=== PATIENT | female | born 1965 | race African-American/Black ===

== ENCOUNTER 2017-02-21 08:33 | Emergency (ER) ==
[2017-02-21 08:33] VITALS: BMI 41.1
[2017-02-21 08:39] VITALS: BP 145/88; TEMP 97.5
--- NOTE | 2017-02-21 09:03 | ED.PDOC ---
General ED Provider: Dr. KRYSTEN GUTIERREZ Chief Complaint: Sore Throat Stated Complaint: sore throat Time Seen by Physician: 08:33 (may at bedside ) Mode of Arrival: Walk-In Information Source: Patient Exam Limitations: No limitations [facility] Nursing and Triage Documentation Reviewed and Agree: Yes EENT Complaint Exam - Throat Complaint/Exam Symptoms Are: Still present Timimg: Constant Initial Severity: Moderate Current Severity: Mild Aggravating: Reports: Eating Alleviating: Reports: None Associated Signs and Symptoms: Denies: Fever, Dysphagia, Drooling, Foreign body sensation, Chills, Cough, Wheezing, Hoarseness, Sinus discomfort, Nasal congestion, Difficulty breathing, Lethargy, Irritability, Decreased activity, Vomiting, Diarrhea, Decreased hearing, Ear drainage Related History: Reports: Similar Episode Uvula Midline: Yes Pippa-tonsillar Fluctuence: No Scarlatinaform Rash Present: No Stridor Present: No Sinus Tenderness Present: No Tonsillar Hypertrophy Present: No Tonsillar Exudate Present: No Pippa-tonsillar Swelling Present: No Adenopathy Present: No Splenomegaly Present: No Review of Systems - Review Of Systems Constitutional: Reports: No symptoms Eyes: Reports: No symptoms Ears, Nose, Mouth, Throat: Reports: Throat pain Respiratory: Reports: No symptoms Cardiac: Reports: No symptoms GI: Reports: No symptoms : Reports: No symptoms Musculoskeletal: Reports: No symptoms Skin: Reports: No symptoms Neurological: Reports: No symptoms Endocrine: Reports: No symptoms Hematologic/Lymphatic: Reports: No symptoms All Other Systems: Reviewed and Negative Past Medical History - Past Medical History Previously Healthy: No Endocrine: Reports: DM 2 (on onsulin) Cardiovascular: Reports: None Respiratory: Reports: None Hematological: Reports: None Gastrointestinal: Reports: None Genitourinary: Reports: None, Other (increased voiding with oral hypoglycemics) Neuro/Psych: Reports: CVA (on coumadin 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) Musculoskeletal: Reports: Arthritis, Back Pain Cancer: Reports: None Last Menstrual Period: menopause Other Pertinent Past Medical History: Back pain - Surgical History General Surgical History: Reports: Unknown - Family History Family History: Reports: Unknown - Social History Smoking Status: Current every day smoker, Heavy tobacco smoker Hx Substance Use: No Alcohol Screening: Occasionally Physical Exam - Physical Exam Appearance: Well-appearing, No pain distress, Well-nourished Eyes: LISET, EOMI, Conjunctiva clear ENT: Ears normal, Nose normal, Oropharynx normal Respiratory: Airway patent, Breath sounds clear, Breath sounds equal, Respirations nonlabored Cardiovascular: RRR, Pulses normal, No rub, No murmur GI/: Soft, Nontender, No masses, Bowel sounds normal, No Organomegaly Musculoskeletal: Normal strength, ROM intact, No edema, No calf tenderness Skin: Warm, Dry, Normal color Neurological: Sensation intact, Motor intact, Reflexes intact, Cranial nerves intact, Alert, Oriented Psychiatric: Affect appropriate, Mood appropriate Critical Care Note - Critical Care Note Total Time (mins): 0 Course - Course Vital Signs: Temp Pulse Resp BP Pulse Ox 02/21/17 08:33 97.5 F L 78 20 145/88 H 95 Departure - Departure Time of Disposition: 09:02 Disposition: HOME SELF-CARE Discharge Problem: Throat pain Instructions: Strep Throat (ED), Pharyngitis (ED) Condition: Good Pt referred to PMD for follow-up: No Allergies/Adverse Reactions: Allergies lisinopril Allergy (Severe, Verified 02/21/17 08:40) cough Patient to notify drugstore steroids Adverse Reaction (Uncoded 08/18/16 21:41) Nausea Home Medications: Ambulatory Orders Aspirin [Aspirin Chewable] 81 mg PO DAILY 03/16/13 Hydrocodone/Acetaminophen [Alma 5-325 Tablet] 1 each PO BID 01/30/16 Hydroxyzine HCl 25 mg PO TID #90 09/06/16 Amoxicillin 500 mg PO Q8HR #21 tablet 02/21/17 Disposition Discussed With: Patient
== END 2017-02-21 09:08 | disposition home or self-care (01) ==
LOC: ED 08:33
DX: J02.9 Acute pharyngitis, unspecified (principal); F17.210 Nicotine dependence, cigarettes, uncomplicated
CPT/HCPCS: 99282

== ENCOUNTER 2017-04-15 12:16 | Outpatient (RCR) ==
[2013-03-16 13:59] VITALS: BP 153/98; TEMP 97.2
== END 2017-05-06 ==
LOC: NEWBEG 12:16 → EDSTATUS 12:18
PROVIDERS: ATTEND Psychiatry & Neurology Psychiatry
DX: Z00.8 Encounter for other general examination (principal)

== ENCOUNTER 2017-04-24 09:55 | Outpatient (CLI) ==
[2013-03-16 13:59] VITALS: BP 153/98; TEMP 97.2
[2017-04-24 10:11] LABS: BASOPHILS % (AUTO) 0.8 % (0.0-3.0); EOSINOPHILS # (AUTO) 0.1 K/ul (0.0-0.7); EOSINOPHILS % (AUTO) 2.3 % (0.0-7.0); HEMATOCRIT 44.5 % (37.0-47.0); HEMOGLOBIN 14.6 g/dl (12.0-16.0); IMMATURE GRANULOCYTE % (AUTO) 0.2 % (0.0-5.0); LYMPHOCYTES % (AUTO) 42.4 (10.0-50.0); MEAN CORPUSCULAR HEMOGLOBIN 27.7 pg (27.0-31.0); MEAN CORPUSCULAR HGB CONC 32.8 (31.8-35.4); MEAN CORPUSCULAR VOLUME 84.4 fl (81.0-99.0); MONOCYTES # (AUTO) 0.4 K/uL (0.4-2.0); MONOCYTES % (AUTO) 7.7 (0-10); NEUTROPHILS # (AUTO) 2.2 K/ul (2.0-6.9); NEUTROPHILS % (AUTO) 46.6; PLATELET COUNT 306 10^3/uL (140-440); RED BLOOD COUNT 5.27 10^6/ul (4.20-5.40); WHITE BLOOD COUNT 4.81 K/ul (4.6-10.2)
[2017-04-24 10:50] LABS: ALBUMIN 3.9 g/dL (3.4-5.0); ALBUMIN/GLOBULIN RATIO 1.15; ANION GAP 16.2; BILIRUBIN,TOTAL 0.71 mg/dL (0.00-1.20); BUN/CREATININE RATIO 15.58; CALCIUM 9.7 mg/dL (8.2-10.2); CHOL/HDL RATIO 6.9 (4.5-5.5); CREATININE 0.77 mg/dL (0.60-1.30); POTASSIUM 4.2 mmol/L (3.5-5.10); TOTAL PROTEIN 7.3 g/dL (6.4-8.2)
== END 2017-04-24 09:56 | disposition home or self-care (01) ==
LOC: LAB 09:55
PROVIDERS: ATTEND Nurse Practitioner Family
DX: E78.5 Hyperlipidemia, unspecified (principal); E11.9 Type 2 diabetes mellitus without complications; I10 Essential (primary) hypertension; Z91.19 Patient's noncompliance with other medical treatment and regimen
CPT/HCPCS: 36415; 80053; 80061; 83036; 84443; 85025

== ENCOUNTER 2017-04-26 10:18 | Outpatient (CLI) ==
[2013-03-16 13:59] VITALS: BP 153/98; TEMP 97.2
--- NOTE | 2017-04-26 11:55 | MRI ---
EXAM: MRI brain without IV contrast. DATE: 26 April 2017. HISTORY: Dizziness and giddiness. TECHNIQUE: Sagittal T1W, axial T2W, axial FLAIR, axial T1W, axial DWI, and coronal T2W GRE sequence s of the brain were obtained using 1.2 [place] magnet. No IV contrast. COMPARISON: MRI brain 11/16/2014. FINDINGS: The ventricles, cisterns, and subarachnoid spaces are commensurately enlarged due to invo lutional change. No midline shift, mass effect or loculated extra-axial fluid collection is apparen t. No acute hemorrhage or neoplasm is identified. Small/moderate confluent rim of T2W/FLAIR hyperi ntensity is observed in the white matter abutting each lateral ventricle. Small number of to to 5 m m, T2W/FLAIR bright foci are scattered within the jay radiata, centrum semiovale and subcortical white matter bilaterally. Chronic right caudate head, right putamen, right external capsule, right thalamus, and left external capsule lacunar infarcts are observed. DWI hyperintensities at the ante rior paramidline medulla are likely artifacts. A 2 mm DWI slightly bright focus is seen in the righ t paramidline linda and a similar focus in the right frontal jay radiata are suspicious for acute infarct. The contreras - white matter differentiation is normal. The 7th/8th cranial nerve complexes, c erebellopontine angles, brainstem, and visible cervical spinal cord are normal. There is no cerebel lar tonsillar ectopia. The pituitary gland is slightly small in size. Corpus callosum is normal in size and configuration. Flow voids are present in the major intracranial arteries and in the dural venous sinuses. No aneurysm, AVM or dural venous sinus thrombosis is apparent. No orbit abnormali ty is identified. The mastoid air cells are unremarkable. There is no acute sinusitis. No neck ma ss or lymphadenopathy is detected. No calvarial neoplasm or acute fracture is evident. IMPRESSIONS: 1. Acute, tiny infarcts in the right frontal jay radiata and right paramidline linda. No mass ef fect or significant vasogenic edema. 2. Right thalamic, right basal ganglia, bilateral external capsule old lacunar infarcts. 3. No acute hemorrhage, mass or hydrocephalus. 4. Slightly small pituitary gland. No pituitary lesion. Critical result: Report called to Dr. Lopes at 1147 hrs, 26 April 2017.
[2017-04-26 12:50] VITALS: BMI 38.5
== END 2017-04-26 10:19 | disposition home or self-care (01) ==
LOC: RAD 10:18
PROVIDERS: ATTEND Emergency Medicine
DX: R42 Dizziness and giddiness (principal)

== ENCOUNTER 2017-04-26 12:07 | Inpatient (IN) ==
[2017-04-26 12:50] VITALS: BMI 38.5
--- NOTE | 2017-04-26 14:06 | DI ---
EXAM: Chest two views HISTORY: Cough and COMPARISON: 07/14/2014 TECHNIQUE: Two views of the chest were performed FINDINGS: No airspace consolidation. Small left apical nodularity probably vascular summation paris fact versus less likely nodule. There is no pleural effusion or pneumothorax. The heart is normal in size. The mediastinal contour is normal. There are no acute abnormalities of the bones. IMPRESSION: 1. No acute cardiopulmonary process. 2. Small left apical nodularity probably vascular summation artifact versus less likely nodule. Re commend radiographic follow-up 6 months for reevaluation.
[2017-04-26] MEDS: SODIUM CHLORIDE 1,000 ML IV SCH (14:30)
--- NOTE | 2017-04-26 14:37 | US ---
EXAM: Bilateral carotid artery Doppler History: Dizziness. Comparison: Carotid Doppler 11/16/2014, brain MRI 04/26/2017 Technique: Multiple sonographic images through the bilateral internal carotid arteries were obtaine d. Color duplex Doppler was used to interrogate vascular flow. Findings: The right ICA peak systolic velocity is within normal limits measuring 0.5 meters per second The ri ght ICA/cca PSV ratio is normal at 1.0. The right vertebral artery was not seen. Geiger scale images demonstrate mild plaque buildup within the right internal carotid artery. The left ICA peak systolic velocity is within normal limits measuring 0.6 meters per second. The lef t ICA/cca PSV ratio is normal at 1.2. The left vertebral artery is patent and demonstrates antegrad e flow. Geiger scale images demonstrate mild plaque buildup within the left internal carotid artery Impression: 1. No significant hemodynamic stenosis of the bilateral internal carotid arteries. 2. Nonvisualization of the right vertebral artery.
[2017-04-26] MEDS ORDERED: VASOTEC IV IVP PRN (15:37)
[2017-04-26] MEDS ORDERED: KENALOG 0.1% TP PRN (15:46)
[2017-04-26 15:49] LABS: BILIRUBIN,URINE Negative (NEGATIVE); KETONES,URINE 1+ (NEGATIVE); LEUKOCYTE ESTERASE ,URINE Negative (NEGATIVE); NITRITE,URINE Negative (NEGATIVE); PROTEIN,URINE Negative (NEGATIVE); URINE, BLOOD Negative (NEGATIVE)
[2017-04-26 16:25] LABS: ADD URINE MICROSCOPIC NO
[2017-04-26 19:53] LABS: CREATINE KINASE 49 U/L
[2017-04-26] MEDS ORDERED: LANTUS SUBCUT SCH (21:00)
[2017-04-26] MEDS: NORCO 5-325 PO SCH (21:11)
[2017-04-26] MEDS: LOPRESSOR PO SCH (21:11)
[2017-04-26] MEDS: ANTIVERT PO SCH (21:11)
[2017-04-26] MEDS: KENALOG 0.1% TP SCH (21:12)
[2017-04-27 03:01] LABS: BASOPHILS % (AUTO) 0.5 % (0.0-3.0); EOSINOPHILS # (AUTO) 0.1 K/ul (0.0-0.7); EOSINOPHILS % (AUTO) 2.3 % (0.0-7.0); HEMATOCRIT 41.8 % (37.0-47.0); IMMATURE GRANULOCYTE % (AUTO) 0.2 % (0.0-5.0); LYMPHOCYTES # (AUTO) 2.9 K/uL (0.60-3.4); LYMPHOCYTES % (AUTO) 51.4 (10.0-50.0); MEAN CORPUSCULAR HGB CONC 33.5 (31.8-35.4); MEAN CORPUSCULAR VOLUME 83.6 fl (81.0-99.0); MONOCYTES # (AUTO) 0.5 K/uL (0.4-2.0); NEUTROPHILS # (AUTO) 2.2 K/ul (2.0-6.9); NEUTROPHILS % (AUTO) 37.6; PLATELET COUNT 290 10^3/uL (140-440); WHITE BLOOD COUNT 5.72 K/ul (4.6-10.2)
[2017-04-27 03:20] LABS: ALBUMIN 3.5 g/dL (3.4-5.0); ALBUMIN/GLOBULIN RATIO 1.09; ANION GAP 15.5; BILIRUBIN,TOTAL 0.72 mg/dL (0.00-1.20); BUN/CREATININE RATIO 23.28; CALCIUM 9.1 mg/dL (8.2-10.2); CREATININE 0.73 mg/dL (0.60-1.30); POTASSIUM 3.5 mmol/L (3.5-5.10); TOTAL PROTEIN 6.7 g/dL (6.4-8.2)
[2017-04-27 03:26] LABS: CREATINE KINASE 48 U/L
[2017-04-27] MEDS: ASPIRIN EC PO SCH (08:34)
[2017-04-27] MEDS: ANTIVERT PO SCH ×2 (08:34→20:04)
[2017-04-27] MEDS: LOPRESSOR PO SCH ×2 (08:35→20:05)
[2017-04-27] MEDS: NORCO 5-325 PO SCH ×3 (08:35→20:05)
[2017-04-27] MEDS: SODIUM CHLORIDE 1,000 ML IV SCH (12:54)
[2017-04-27] MEDS: KENALOG 0.1% TP SCH (20:04)
[2017-04-27] MEDS: LANTUS SUBCUT SCH (20:05)
[2017-04-28 05:14] LABS: BASOPHILS % (AUTO) 0.6 % (0.0-3.0); EOSINOPHILS # (AUTO) 0.1 K/ul (0.0-0.7); EOSINOPHILS % (AUTO) 2.6 % (0.0-7.0); HEMATOCRIT 41.2 % (37.0-47.0); HEMOGLOBIN 13.6 g/dl (12.0-16.0); IMMATURE GRANULOCYTE % (AUTO) 0.2 % (0.0-5.0); LYMPHOCYTES # (AUTO) 2.5 K/uL (0.60-3.4); LYMPHOCYTES % (AUTO) 53.8 (10.0-50.0); MEAN CORPUSCULAR HEMOGLOBIN 27.6 pg (27.0-31.0); MEAN CORPUSCULAR VOLUME 83.7 fl (81.0-99.0); MONOCYTES # (AUTO) 0.4 K/uL (0.4-2.0); MONOCYTES % (AUTO) 7.7 (0-10); NEUTROPHILS # (AUTO) 1.7 K/ul (2.0-6.9); NEUTROPHILS % (AUTO) 35.1; PLATELET COUNT 292 10^3/uL (140-440); RED BLOOD COUNT 4.92 10^6/ul (4.20-5.40)
[2017-04-28 05:39] LABS: ALBUMIN 3.3 g/dL (3.4-5.0); ALBUMIN/GLOBULIN RATIO 1.1; ANION GAP 15.6; BILIRUBIN,TOTAL 0.61 mg/dL (0.00-1.20); BUN/CREATININE RATIO 21.87; CALCIUM 9.4 mg/dL (8.2-10.2); CREATININE 0.64 mg/dL (0.60-1.30); POTASSIUM 3.6 mmol/L (3.5-5.10); TOTAL PROTEIN 6.3 g/dL (6.4-8.2)
[2017-04-28] MEDS: ANTIVERT PO SCH ×2 (10:38→20:04)
[2017-04-28] MEDS: LOPRESSOR PO SCH ×2 (10:39→20:04)
[2017-04-28] MEDS: ASPIRIN EC PO SCH (10:39)
[2017-04-28] MEDS: NORCO 5-325 PO SCH ×3 (10:43→20:04)
[2017-04-28] MEDS: SODIUM CHLORIDE 1,000 ML IV SCH ×2 (12:52→12:53)
[2017-04-28] MEDS: LANTUS SUBCUT SCH (20:02)
[2017-04-28] MEDS: KENALOG 0.1% TP SCH (20:03)
[2017-04-29 04:48] LABS: BASOPHILS % (AUTO) 0.6 % (0.0-3.0); EOSINOPHILS # (AUTO) 0.1 K/ul (0.0-0.7); EOSINOPHILS % (AUTO) 2.8 % (0.0-7.0); HEMOGLOBIN 13.2 g/dl (12.0-16.0); IMMATURE GRANULOCYTE % (AUTO) 0.2 % (0.0-5.0); LYMPHOCYTES # (AUTO) 2.5 K/uL (0.60-3.4); LYMPHOCYTES % (AUTO) 54.2 (10.0-50.0); MEAN CORPUSCULAR HEMOGLOBIN 27.5 pg (27.0-31.0); MEAN CORPUSCULAR HGB CONC 32.2 (31.8-35.4); MEAN CORPUSCULAR VOLUME 85.4 fl (81.0-99.0); MONOCYTES # (AUTO) 0.4 K/uL (0.4-2.0); MONOCYTES % (AUTO) 9.4 (0-10); NEUTROPHILS # (AUTO) 1.5 K/ul (2.0-6.9); NEUTROPHILS % (AUTO) 32.8; PLATELET COUNT 311 10^3/uL (140-440); WHITE BLOOD COUNT 4.67 K/ul (4.6-10.2)
[2017-04-29 05:10] LABS: ALBUMIN 3.2 g/dL (3.4-5.0); ALBUMIN/GLOBULIN RATIO 1.07; ANION GAP 14.7; BILIRUBIN,TOTAL 0.36 mg/dL (0.00-1.20); BUN/CREATININE RATIO 19.17; CALCIUM 9.4 mg/dL (8.2-10.2); CREATININE 0.73 mg/dL (0.60-1.30); POTASSIUM 3.7 mmol/L (3.5-5.10); TOTAL PROTEIN 6.2 g/dL (6.4-8.2)
[2017-04-29] MEDS ORDERED: DULCOLAX RC STA (08:34)
[2017-04-29] MEDS: LOPRESSOR PO SCH ×2 (09:02→21:19)
[2017-04-29] MEDS: ANTIVERT PO SCH ×2 (09:02→21:20)
[2017-04-29] MEDS: NORCO 5-325 PO SCH ×3 (09:02→21:20)
[2017-04-29] MEDS: ASPIRIN EC PO SCH (09:02)
[2017-04-29] MEDS ORDERED: LANTUS SUBCUT SCH ×2 (09:03→21:00)
--- NOTE | 2017-04-29 11:27 | ECHO2D ---
Date of Exam: 04/29/17 [facility] Reason for Echo: SOB, HTN M-Mode Normal Adult Results LV Dimensions Normal Adult Results AoV Opening excursions >1.6 >1.6 LVEDD-base- 3.5-5.8 4.0 Ao root dimensions 2.0-3.7 3.3 LVESD-base- 3.1-4.6 L. Atrium dimensions 1.9-3.8 3.9 Post. Wall thickness 0.8-1.1 1.2 IV septum (thickness) 0.7-1.2 1.3 Post. Wall excursion 0.72-1.3 NORMAL Septal motion NORMAL Systolic motion R. Ventricular cavity 1.5-2.0 NORMAL LVEF 60% 64% Paradoxical septal wall motion NORMAL 2-D : 2-D M Mode Echocardiogram was performed using apical four chamber and left parasternal long and short axis views. Mitral, tricuspid and aortic valves appear to be normal. Contractility of the left ventricle seems to be normal, so is the cavity size. Left atrial cavity size and aortic root appear to be normal. There is no pericardial effusion. There is no thrombus noted in the left ventricular or left aortic cavity. No mitral valve prolapse noted. M-MODE: MV: NORMAL AV: NORMAL TV: NORMAL PV: CHAMBER SIZE: NORMAL WALL MOTION: NORMAL PERICARDIUM: NORMAL INTERPRETATION: 1. LEFT VENTRICULAR HYPERTROPHY 2. NORMAL VALVES 3. NORMAL LEFT VENTRICULAR CONTRACTILITY MTDD
[2017-04-29] MEDS: HUMULIN R SUBCUT PRN ×3 (11:31→21:20)
[2017-04-29] MEDS: SODIUM CHLORIDE 1,000 ML IV SCH (14:13)
--- NOTE | 2017-04-29 14:33 | HP ---
DATE OF SERVICE: 04/26/17 CHIEF COMPLAINT: Dizziness. HISTORY OF PRESENT ILLNESS: This is a 51 year old female who has been having dizziness for a couple of days off and on. Blood sugars of the patient had not stable, so she came to the office. Her recent A1C was 12.4 and the blood pressure was 180/110. She says that she in and out of taking the blood pressure. The patient's was with her in the room. At that time, I advised the patient to resume the medication and we did an MRI of the brain, which she did today as an outpatient which showed acute tiny infarct in the frontal jay radiata and right paramidline linda. At that time, the patient was brought back to the office. The patient was still symptomatic with the severe dizziness and that time the patient was admitted to the hospital for the acute stroke. The patient still has the dizziness and when she is walking she is dizzy, woozy, unsteady gait. The room is spinning. REVIEW OF SYSTEMS: CONSTITUTIONAL: Dizziness. Unsteady gait. Elevated blood sugars. Elevated blood pressures. No fever, no chills. HEENT: Normal. Sometimes blurry vision. ENDOCRINE: No weight gain; no weight loss. CVS: No chest pain. No PND, no orthopnea. Shortness of breath with exertion. No PND, no orthopnea. RESPIRATORY: No cough, no congestion. No hemoptysis. GI: No nausea, no vomiting. No abdominal pain. No melena. : No hematuria. No polyuria. MUSCULOSKELETAL: Back pain and neck pain. PSYCHIATRIC: Not anxious. No depression. No suicidal thoughts. No homicidal thoughts. SKIN: Intact, no open lesions. PAST MEDICAL HISTORY: Coronary artery disease Dyslipidemia Hypertension History of TIA in 2015 Osteoarthritis DJD of the spine Diabetes mellitus, uncontrolled Nicotine use PAST SURGICAL HISTORY: Cholecystectomy in the . PERSONAL HISTORY: Does smoke, drinks alcohol socially. and lives with her . FAMILY HISTORY: Significant for the diabetes, heart problems and cancer. HOME MEDICATIONS: Betamethasone cream Lantus 50 units hs Meclizine 12.5 mg twice daily Metoprolol 25 mg twice daily Hydroxyzine 35 mg twice daily Atorvastatin 40 mg at bedtime Hydrocodone/APAP 5/325 mg three times daily Aspirin 81 mg daily ALLERGIES: Allergic to Lisinopril PHYSICAL EXAMINATION: V/S: Blood pressure 158/106, respiratory rate 18, heart rate 89, temperature 97.0. HEENT: Atraumatic, normocephalic. No scleral icterus. Pallor positive. Mucosa dry. NECK: Supple. No JVD, no bruit. No lymphadenopathy. No thyromegaly. HEART: S1, S2 normal. No murmur. No cyanosis or clubbing. No ascites. LUNGS: Decreased and clear. No rales or rhonchi. ABDOMEN: Soft, nontender. Bowel sounds are active. No CVA tenderness. No rigidity or guarding. EXTREMITIES: No cyanosis, clubbing or pedal edema. MUSCULOSKELETAL: Intact. NEUROLOGIC: The patient is awake and alert. SKIN: Intact; no open lesions. LYMPHATIC: No lymph nodes palpable. LABS: Labs on the patient are awaiting. ASSESSMENT: 1. ACUTE INFARCTION 2. UNCONTROLLED HYPERTENSION 3. UNCONTROLLED DIABETES MELLITUS 4. NONCOMPLIANCE 5. HISTORY OF DYSLIPIDEMIA PLAN: 1. Admit the patient to the regular floor. 2. CBC, CMP today and daily. 3. Cardiac enzymes and Troponin. 4. Carotid ultrasound. 5. Accucheck with the coverage. 6. Lantus 50 units. 7. Will follow the patient in daily rounds. Time spent on the patient is more than 70 minutes. HERBIED
--- NOTE | 2017-04-29 14:47 | PN ---
DATE OF SERVICE: 04/27/17 SUBJECTIVE: The patient was admitted with acute stroke with severe dizziness and hypertension, which was not controlled with the blood pressure at 159/101. Vasotec was given. Carotid ultrasound done which showed no significant hemodynamic stenosis. Nonvisualization of the right vertebral artery. No chest pain. The patient is feeling better. No dizziness now. Sugars are still high at 247. We will adjust the Lantus. REVIEW OF SYSTEMS: CONSTITUTIONAL: No fever, no chills. HEENT: Normal. ENDOCRINE: No weight gain, no weight loss. CVS: No angina symptoms. No CHF symptoms. No palpitations. No atypical chest pain for CAD. No shortness of breath. No PND, no orthopnea. RESPIRATORY: No cough, no hemoptysis. GI: No nausea, no vomiting. No abdominal pain. : No hematuria. No polyuria. MUSCULOSKELETAL:. No joint swelling. PSYCHIATRIC: Not anxious. No depression. No suicidal thoughts. No homicidal thoughts. SKIN: Intact. No rash. PHYSICAL EXAMINATION: V/S: Blood pressure 122/85, respiratory rate 20, heart rate 80, temperature 97.7. HEENT: Normocephalic, atraumatic. NECK: Supple. No JVD, no carotid bruit. No lymphadenopathy. LUNGS: Clear to auscultation. No rales or rhonchi. HEART: S1, S2 normal. No S3. No murmur, gallop or regurgitation. ABDOMEN: Soft, nontender. Bowel sounds active. No rigidity. No rebound or guarding. No CVA tenderness. EXTREMITIES: No clubbing, cyanosis or pedal edema. MUSCULOSKELETAL: No joint swelling. NEUROLOGIC: Awake, alert, oriented times three. No focal deficit. LYMPHATIC: No lymph nodes palpable. SKIN: Intact. LABS: Sodium 134, potassium 3.5, chloride 99, bicarb 23, BUN 17, creatinine 0.73. White count 5.72, hemoglobin 14, hematocrit 41.8, platelet count is 290. ASSESSMENT: 1. ACUTE ISCHEMIC STROKE 2. HYPERTENSION UNCONTROLLED 3. DIABETES UNCONTROLLED WITH RECENT A1C OF 12.6 4. DYSLIPIDEMIA 5. OBESITY 6. OSTEOARTHRITIS 7. DJD OF THE SPINE 8. NONCOMPLIANCE WITH MEDICATIONS AND MEDICAL TREATMENT PLAN: 1. Will increase the Lantus to 60 units. 2. Accucheck with coverage. 3. I & O's. 4. Out of bed to chair. 5. Activity as tolerated. 6. No DVT prophylaxis as the patient is active. TIME SPENT: More than 30 minutes MTDD
--- NOTE | 2017-04-29 14:59 | PN ---
DATE OF SERVICE: 04/28/17 SUBJECTIVE: The patient was admitted with acute stroke. The patient is clinically stable. The dizziness is better. Sugars are improved ever since we increased the Lantus to 60 units hs. Blood pressure is stable at 131/87. REVIEW OF SYSTEMS: CONSTITUTIONAL: No fever, no chills. HEENT: Normal. ENDOCRINE: No weight gain, no weight loss. CVS: No angina symptoms. No CHF symptoms. No palpitations. No atypical chest pain for CAD. No shortness of breath. No PND, no orthopnea. RESPIRATORY: No cough, no hemoptysis. GI: No nausea, no vomiting. No abdominal pain. : No hematuria. No polyuria. MUSCULOSKELETAL:. No joint swelling. PSYCHIATRIC: Not anxious. No depression. No suicidal thoughts. No homicidal thoughts. SKIN: Intact. No rash. PHYSICAL EXAMINATION: V/S: Blood pressure 131/87, respiratory rate 18, heart rate 64, temperature 97.8. GENERAL: The patient is lying in the bed in no distress. HEENT: Normocephalic, atraumatic. Mucosa dry. NECK: Supple. No JVD, no carotid bruit. No lymphadenopathy. LUNGS: Decreased and clear. No rales or rhonchi. HEART: S1, S2 normal. No S3. No murmur, gallop or regurgitation. ABDOMEN: Soft, nontender. Bowel sounds active. No rigidity. No rebound or guarding. No CVA tenderness. EXTREMITIES: No clubbing, cyanosis or pedal edema. MUSCULOSKELETAL: No joint swelling. NEUROLOGIC: Awake, alert, oriented times three. No focal deficit. LYMPHATIC: No lymph nodes palpable. SKIN: Intact. LABS: Sodium 138, potassium 3.6, chloride 104, bicarb 22, BUN 14, creatinine 0.64, glucose 175. White count is 4.70, hemoglobin 13.6, hematocrit 41.2, platelet count 292. ASSESSMENT: 1. ACUTE CEREBRAL VASCULAR ACCIDENT, ACUTE TINY INFARCTS IN THE RIGHT FRONTAL WRIGHT RADIATA AND RIGHT PARAMIDLINE CRISTINA. RIGHT THALAMIC, RIGHT BASAL GANGLIA. CHRONIC LACUNAR INFARCTS. 2. CAROTID ULTRASOUND IS NORMAL. 3. RECENT A1C IS 12.6 4. HYPERTENSION UNCONTROLLED 5. OBESITY 6. DYSLIPIDEMIA 7. OSTEOARTHRITIS 8. DJD OF THE SPINE 9. ANXIETY 10. CHOLECYSTECTOMY PLAN: 1. Will go ahead and get an echocardiogram in view of her hypertension and the stroke. Carotid ultrasound is negative. 2. Lifestyle modifications was discussed. 3. Hypoglycemia is discussed. TIME SPENT: More than 30 minutes MTDD
--- NOTE | 2017-04-29 15:09 | PN ---
DATE OF SERVICE: 04/29/17 SUBJECTIVE: The patient is going for the echocardiogram now. Sugars are still more than 243-300 again. The patient does get the outside food from the . I tried to explain clearly that is not good idea and that high risk of strokes within one week of acute stroke. Verbalized understanding. REVIEW OF SYSTEMS: CONSTITUTIONAL: No fever, no chills. HEENT: Normal. ENDOCRINE: No weight gain, no weight loss. CVS: No angina symptoms. No CHF symptoms. No palpitations. No atypical chest pain for CAD. No shortness of breath. No PND, no orthopnea. RESPIRATORY: No cough, no hemoptysis. GI: No nausea, no vomiting. No abdominal pain. : No hematuria. No polyuria. MUSCULOSKELETAL:. No joint swelling. PSYCHIATRIC: Not anxious. No depression. No suicidal thoughts. No homicidal thoughts. SKIN: Intact. No rash. PHYSICAL EXAMINATION: V/S: Blood pressure 152/96, respiratory rate 20, heart rate 82, temperature 97.9. HEENT: Normocephalic, atraumatic. Mucosa dry. NECK: Supple. No JVD, no carotid bruit. No lymphadenopathy. LUNGS: Decreased and clear. No rales or rhonchi. HEART: S1, S2 normal. No S3. No murmur, gallop or regurgitation. ABDOMEN: Soft, nontender. Bowel sounds active. No rigidity. No rebound or guarding. No CVA tenderness. EXTREMITIES: No clubbing, cyanosis or pedal edema. MUSCULOSKELETAL: No joint swelling. NEUROLOGIC: Awake, alert, oriented times three. No focal deficit. LYMPHATIC: No lymph nodes palpable. SKIN: Intact. Sugars are really elevated. The patient is having an echocardiogram today. LABS: Sodium 141, potassium 3.7, chloride 104, bicarb 26, BUN 14, creatinine 0.73, white count 4.67, hemoglobin 13.2, hematocrit 41.0, platelet count 311. ASSESSMENT: 1. ACUTE STROKE, ISCHEMIC 2. LABILE HYPERTENSION 3. LABILE DIABETES WITH AN A1C OF 12.6 4. NONCOMPLIANT 5. OBESITY 6. DYSLIPIDEMIA PLAN: 1. Increase the Lantus to 65 units hs. 2. Follow up on the echocardiogram report. 3. Lifestyle modification and weight loss been discussed. TIME SPENT: More than 30 minutes MTDD
[2017-04-29] MEDS: KENALOG 0.1% TP SCH (21:19)
[2017-04-30 05:03] LABS: BASOPHILS % (AUTO) 0.8 % (0.0-3.0); EOSINOPHILS # (AUTO) 0.2 K/ul (0.0-0.7); EOSINOPHILS % (AUTO) 2.9 % (0.0-7.0); HEMATOCRIT 40.7 % (37.0-47.0); HEMOGLOBIN 13.4 g/dl (12.0-16.0); LYMPHOCYTES # (AUTO) 2.9 K/uL (0.60-3.4); LYMPHOCYTES % (AUTO) 57.1 (10.0-50.0); MEAN CORPUSCULAR HGB CONC 32.9 (31.8-35.4); MONOCYTES # (AUTO) 0.5 K/uL (0.4-2.0); NEUTROPHILS # (AUTO) 1.5 K/ul (2.0-6.9); NEUTROPHILS % (AUTO) 30.2; PLATELET COUNT 295 10^3/uL (140-440); RED BLOOD COUNT 4.79 10^6/ul (4.20-5.40)
[2017-04-30 05:35] LABS: ALBUMIN 3.2 g/dL (3.4-5.0); ALBUMIN/GLOBULIN RATIO 1.03; ANION GAP 12.9; BILIRUBIN,TOTAL 0.44 mg/dL (0.00-1.20); BUN/CREATININE RATIO 19.11; CALCIUM 9.7 mg/dL (8.2-10.2); CREATININE 0.68 mg/dL (0.60-1.30); POTASSIUM 3.9 mmol/L (3.5-5.10); TOTAL PROTEIN 6.3 g/dL (6.4-8.2)
[2017-04-30] MEDS: ANTIVERT PO SCH (08:59)
[2017-04-30] MEDS: NORCO 5-325 PO SCH (08:59)
[2017-04-30] MEDS: LOPRESSOR PO SCH (08:59)
[2017-04-30] MEDS: ASPIRIN EC PO SCH (08:59)
[2017-04-30 10:15] VITALS: BP 132/90; TEMP 97.4
[2017-04-30] MEDS: HUMULIN R SUBCUT PRN (11:50)
--- NOTE | 2017-05-01 14:14 | DS ---
DATE OF SERVICE: 04/30/17 FINAL DIAGNOSIS: 1. Acute right frontal jay radiata and right paramidline linda infarct 2. History of right thalamic basal ganglia lacunar infarcts. 3. Diabetes, labile 4. Hypertension, uncontrolled 5. Obesity 6. Non-compliance with medication 7. Osteoarthritis 8. DJD spine 9. Previous history of TIA 10.Anxiety 11.Cholecystectomy DISCHARGE INSTRUCTIONS: Discharge the patient home. Life style modification, weight loss. Hyperglycemia been discussed with the patient in detail and verbalized understanding. MEDICATIONS AT DISCHARGE: Aspirin 81mg PO daily Atorvastatin 40mg at bedtime Hydrocodone one tablet PO three times a day Lantus 65 units at bedtime Meclizine 12.5mg twice a day Metoprolol 25mg PO twice a day NEW PRESCRIPTIONS: Lantus is increased to 65 unit SUBCUT at bedtime Amlodipine 5mg PO daily DIET INSTRUCTIONS: Diet control, more protein less carbohydrate diet been discussed with the patient and understands verbally. ACTIVITY: As tolerated. SMOKING: Counseling for smoking done. DISEASE SPECIFIC EDUCATION: Increased risk for stroke with uncontrolled diabetes and hypertension been discussed and verbalized understanding. She promised that she is going to be more active and try to control her diabetes more better. The patient's was in the room. HOSPITAL COURSE: The patient was initially seen at the [facility] for the dizziness and the elevated blood pressure. We did a MRI of the brain as outpatient and at that time it showed the acute frontal paramidline stroke. At that time the patient was admitted to the hospital. Blood pressure was 159/101. Vasotec was given. Accu-checks were covered and sugars were controlled with the Lantus and the AC and HS sugars. Carotid ultrasounds done which did show minimal plaque did not show any. Meanwhile the Lantus was increased to the 50 units and 60 units and still sugars are more than 250 finally we increased the Lantus to 65 units and keep telling the patient about diet control, weight loss and compliance with the medication and she verbalized understanding. During the hospital stay the blood pressure been finally brought under control. Today morning being 132/86. She says that she promises to take the medication. The patient's has a problem with the addiction of the cocaine and we strictly reminded her not to do any substance abuse and she verbalized understanding. Dizziness was improved and she was up and about walking. We did get the echocardiogram for the evaluation and did showed the left ventricle hypertrophy with the normal ejection fraction. As the patient was doing fine and did not have any complication the patient is being discharged home today. TIME SPENT: More than 55-60 minutes today. CHRISTOPHER
== END 2017-04-30 12:34 | disposition home or self-care (01) | DRG 66 ==
LOC: MEDSURG B 12:07
PROVIDERS: ADMIT Emergency Medicine; ATTEND Emergency Medicine
DX: I63.9 Cerebral infarction, unspecified (principal); R42 Dizziness and giddiness; I51.7 Cardiomegaly; E11.65 Type 2 diabetes mellitus with hyperglycemia; I10 Essential (primary) hypertension; Z86.73 Personal history of transient ischemic attack (TIA), and cerebral infarction without residual deficits; Z91.14 Patient's other noncompliance with medication regimen; E78.5 Hyperlipidemia, unspecified; E66.9 Obesity, unspecified; M19.90 Unspecified osteoarthritis, unspecified site; M47.9 Spondylosis, unspecified; F41.9 Anxiety disorder, unspecified; F17.210 Nicotine dependence, cigarettes, uncomplicated; Z79.4 Long term (current) use of insulin; Z79.899 Other long term (current) drug therapy
CPT/HCPCS: 36415; 80053; 81001; 82550; 82962; 84484; 85025; 93005; 93010; 97802

== ENCOUNTER 2017-05-08 02:57 | Emergency (ER) ==
[2017-05-08 03:00] VITALS: BP 171/89; TEMP 98.2; BMI 40.6
[2017-05-08] MEDS ORDERED: TORADOL IM STA (03:08)
[2017-05-08] MEDS ORDERED: ZOFRAN 4 MG/2 ML IM STA (03:09)
[2017-05-08] MEDS ORDERED: MORPHINE 4 MG/ML SYRINGE IM STA (03:09)
--- NOTE | 2017-05-08 03:13 | ED.PDOC ---
General ED Provider: Dr. JOSEP STANTON-ER Chief Complaint: Hip Pain/Injury Stated Complaint: my hip hurts Time Seen by Physician: 03:11 Mode of Arrival: Walk-In Information Source: Patient, Family Exam Limitations: No limitations [facility] and Triage Documentation Reviewed and Agree: Yes Musculoskeletal Complaint Exam - Hip/Pelvis Complaint/Exam Location of Pain: Reports: Left, Hip Mechanism of Injury: Reports: No known trauma Onset/Duration: 24hrs Symptoms Are: Still present Initial Severity: Mild Current Severity: Moderate Location: Reports: Discrete Character: Reports: Dull, Aching, Throbbing Aggravating: Reports: Movement Alleviating: Reports: None Associated Signs and Symptoms: Denies: Swelling, Redness, Bruising, Fever, Weakness, Dizziness, Syncope, Abdominal pain, Knee pain Able to Bear Weight: No Septic Arthritis Risk Factors: Reports: None Related Surgical History: Reports: None Tenderness: Present: Left Range of Motion Limited In: Present: Flexion, Extension, Abduction, Adduction NV Bundle Intact Distal to Injury: Yes Differential Diagnoses: Bursitis, Sciatica Review of Systems - Review Of Systems Constitutional: Reports: No symptoms Eyes: Reports: No symptoms Ears, Nose, Mouth, Throat: Reports: No symptoms Respiratory: Reports: No symptoms Cardiac: Reports: No symptoms GI: Reports: No symptoms : Reports: No symptoms Musculoskeletal: Reports: Joint pain Skin: Reports: No symptoms Neurological: Reports: No symptoms Endocrine: Reports: No symptoms Hematologic/Lymphatic: Reports: No symptoms All Other Systems: Reviewed and Negative Past Medical History - Past Medical History Previously Healthy: No Endocrine: Reports: DM 2 (on onsulin) Cardiovascular: Reports: None Respiratory: Reports: None Hematological: Reports: None Gastrointestinal: Reports: None Genitourinary: Reports: None, Other (increased voiding with oral hypoglycemics) Neuro/Psych: Reports: CVA (on coumadin 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) Musculoskeletal: Reports: Arthritis, Back Pain Cancer: Reports: None Last Menstrual Period: several years Other Pertinent Past Medical History: Back pain - Surgical History General Surgical History: Reports: Unknown - Family History Family History: Reports: Unknown - Social History Smoking Status: Current every day smoker Hx Substance Use: No Alcohol Screening: Occasionally - Immunizations Tetanus Shot up to Date: Yes Physical Exam - Physical Exam Appearance: Well-appearing, No pain distress, Well-nourished Pain Distress: Moderate Eyes: LISET, EOMI, Conjunctiva clear ENT: Ears normal, Nose normal, Oropharynx normal Neck: Supple Respiratory: Airway patent, Breath sounds clear, Breath sounds equal, Respirations nonlabored Cardiovascular: RRR GI/: Soft, Nontender, No masses, Bowel sounds normal, No Organomegaly Musculoskeletal: Normal strength, ROM intact, No edema, No calf tenderness Skin: Warm, Dry, Normal color Neurological: Sensation intact, Motor intact, Reflexes intact, Cranial nerves intact, Alert, Oriented Psychiatric: Affect appropriate, Mood appropriate Interpretation - Radiology Interpretation Radiology Interpretation By: Radiologist Radiology Results: Positive Exam Interpreted: CT Scan Re-Evaluation - Re-Evaluation Time of Re-Evaluation: 04:15 Status: Improved Vital Signs Stable: Yes Pain Level: 2 Appearance: NAD Lungs: Clear Skin: Warm and Dry Neuro: Alert and Oriented X3 CV: RRR Critical Care Note - Critical Care Note Total Time (mins): 0 Course - Course Orders, Labs, Meds: Orders Category Date Time Status Ketorolac Tromethamine [Toradol] MEDS 05/08/17 03:08 Discontinued 60 mg IM ONCE STA Morphine Sulfate [Morphine 4 mg/ml Syringe] MEDS 05/08/17 03:09 Discontinued 4 mg IM ONCE STA Ondansetron HCl/Pf [Zofran 4 mg/2 ml] MEDS 05/08/17 03:09 Discontinued 4 mg IM ONCE STA CT LUMBAR SPINE W/O CONTRAST Stat RADS 05/08/17 03:[address] PELVIS W/O CONTRAST Stat RADS 05/08/17 03:09 Completed Medications Discontinued Medications Generic Name Dose Route Start Last Admin Trade Name Rashidq PRN Reason Stop Dose Admin Ketorolac Tromethamine 60 mg 05/08/17 03:08 05/08/17 03:15 Toradol IM 05/08/17 03:09 60 mg ONCE STA Administration Morphine Sulfate 4 mg 05/08/17 03:09 05/08/17 03:15 Morphine 4 Mg/Ml Syringe IM 05/08/17 03:10 4 mg ONCE STA Administration Ondansetron HCl 4 mg 05/08/17 03:09 05/08/17 03:15 Zofran 4 Mg/2 Ml IM 05/08/17 03:10 4 mg ONCE STA Administration Vital Signs: Temp Pulse Resp BP Pulse Ox 08/02/17 02:57 98.2 F 90 18 171/89 H 95 Departure - Departure Time of Disposition: 04:15 Disposition: HOME SELF-CARE Discharge Problem: Sciatica Qualifiers: Laterality: left Qualifier Code: (M54.32) Sciatica, left side Instructions: Sciatica (ED), Lumbar Radiculopathy (ED) Condition: Good Pt referred to PMD for follow-up: Yes Additional Instructions: norco 7.5mg q 4hrs prn pain #15--f/u wtih pain management or pcp Allergies/Adverse Reactions: Allergies lisinopril Allergy (Severe, Verified 05/08/17 03:00) cough Patient to notify drugstore steroids Adverse Reaction (Uncoded 05/08/17 03:00) Nausea Home Medications: Ambulatory Orders Aspirin [Aspirin Chewable] 81 mg PO DAILY 03/16/13 Hydrocodone/Acetaminophen [[place] 5-325 Tablet] 1 each PO TID 01/30/16 Blood-Glucose Control, Normal [Onetouch Ultra Control Soln] 1 each MC TID #1 each 04/25/17 Lancets [Onetouch Lancets] 1 each MC TID #100 each 04/25/17 Amlodipine Besylate [Norvasc] 5 mg PO DAILY #30 tablet 04/30/17 Insulin Glargine,Hum.rec.anlog [Lantus] 65 unit SUBCUT BEDTIME #1 ml 04/30/17 Disposition Discussed With: Patient, Family
--- NOTE | 2017-05-08 03:50 | CT ---
EXAM: CT lumbar spine without intravenous contrast 05/08/2017. Sagittal and coronal reformatted im ages obtained HISTORY: Back pain COMPARISON: 07/28/2015 FINDINGS: A normal lumbar lordosis is maintained. Vertebral bodies appear intact without evidence of fracture. The facet joints align normally. Multilevel chronic degenerative disc disease. Multilevel posterior disc bulge flattening the thecal sac. Severe degenerative disc disease at L4-L5. There is loss of disc height with vacuum disc formation. Posterior disc bulge/osteophyte complex in combination with facet arthropathy causes triangulation of the spinal canal. Moderate bilateral neural foraminal stenosis at L4-L5. IMPRESSION: 1. No acute osseous abnormality of the lumbar spine. 2. Severe degenerative disc disease at L4-L5. 3. Follow-up non-emergent MRI could be obtained for further evaluation if clinically indicated.
--- NOTE | 2017-05-08 03:56 | CT ---
EXAM: CT pelvis without intravenous contrast 05/08/2017. Sagittal and coronal reformatted images o btained HISTORY: Left hip pain COMPARISON: 04/15/2015, 05/08/2017. FINDINGS: The soft tissue structures within the pelvis show no acute abnormality. Chronic degenerat nella disc disease of the lower lumbar spine. Symmetric mild bilateral sacroiliac degenerative change. The sacrum appears intact. The bony pelvi s appears intact without fracture or dislocation. The hips align normally. No acute osseous abnormality of the right or left hip. Minimal osteoarthritic degenerative change. IMPRESSION: 1. Chronic degenerative disc disease of the lower lumbar spine. 2. Mild symmetric degenerative change of the sacroiliac joints. 3. Minimal degenerative change of the right and left hip. 4. No acute osseous or soft tissue abnormality identified within the pelvis.
== END 2017-05-08 04:23 | disposition home or self-care (01) ==
LOC: ED 02:57
DX: M54.32 Sciatica, left side (principal); F17.210 Nicotine dependence, cigarettes, uncomplicated
CPT/HCPCS: 96375; 99283

== ENCOUNTER 2017-07-28 16:35 | Emergency (ER) ==
[2017-07-28 16:42] VITALS: BP 168/90; TEMP 98.4; BMI 40.2
--- NOTE | 2017-07-28 17:11 | ED.PDOC ---
General ED Provider: Dr. JONE HENDRICKS Chief Complaint: Dizziness Stated Complaint: More forgetful x 3 days. Also having mild vertigo x 3 days. MRI ordered by PCP revealed "ministrokes." Given meclizine Rx for dizziness. No other symtoms. Time Seen by Physician: 17:04 Mode of Arrival: Walk-In Information Source: Patient Exam Limitations: No limitations [facility] and Triage Documentation Reviewed and Agree: Yes Neurological Complaint Exam - Neurological Deficit Complaint/Exam Patient Complains of: Reports: Other (forgetfullness) Symptom Onset Unknown: No Onset: Gradual Symptoms Are: Still present Timing: Constant Initial Severity: Moderate Current Severity: Moderate Location: Denies: Generalized, Facial, RUE, LUE, RLE, LLE Character: Denies: Numbness, Tingling, Paresthesia, Motor weakness, Paralysis, Sensory loss, Impaired speech Aggravating: Reports: None Alleviating: Reports: None Associated Signs and Symptoms: Reports: Headache (mild headache behind left eye , unaffected by light or eye movements) CVA Risk Factors: Reports: Diabetes, Hypertension, Smoking SDH Risk Factors: Reports: None Related Surgical History: Reports: None Carotid Bruit Present: No Meningeal Signs Positive: No Focal Weakness: Present: None Focal Sensory Loss: Present: None Gait: Normal Nystagmus Present: Yes (with rapid head rotation only) Gag Reflex Present: Yes [id number]: Normal Findings Romberg Test Positive: No Heel to Toe Normal: Yes Signs of Trauma: Yes IV t-PA Prescribed: No Differential Diagnoses: CVA, Other (other illness exacerbating underlying old CVA symptoms) Review of Systems - Review Of Systems Constitutional: Reports: No symptoms Eyes: Reports: No symptoms Ears, Nose, Mouth, Throat: Reports: No symptoms Respiratory: Reports: No symptoms Cardiac: Reports: No symptoms GI: Reports: No symptoms : Reports: No symptoms Musculoskeletal: Reports: No symptoms Skin: Reports: No symptoms Neurological: Reports: Headache, Other (forgetfulness) Endocrine: Reports: No symptoms Hematologic/Lymphatic: Reports: No symptoms All Other Systems: Reviewed and Negative Past Medical History - Past Medical History Previously Healthy: No Endocrine: Reports: DM 2 (insulin-requiring) Cardiovascular: Reports: None Respiratory: Reports: None Hematological: Reports: None Gastrointestinal: Reports: None Genitourinary: Reports: None, Other (increased voiding with oral hypoglycemics) Neuro/Psych: Reports: CVA (on coumadin 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) Musculoskeletal: Reports: Arthritis, Back Pain Cancer: Reports: None Last Menstrual Period: N/A Other Pertinent Past Medical History: Back pain - Surgical History General Surgical History: Reports: Hysterectomy - Family History Family History: Reports: Unknown - Social History Smoking Status: Current every day smoker Hx Substance Use: No Alcohol Screening: Occasionally Lives: With family - Immunizations Tetanus Shot up to Date: No Influenza Vaccine within 12 Months: No Pneumococcal Vaccine up to Date: No Physical Exam - Physical Exam Appearance: Well-appearing, No pain distress, Well-nourished, Obese (mild obesity) Ill-appearing: None Pain Distress: None Eyes: LISET, EOMI, Conjunctiva clear ENT: Ears normal, Nose normal, Oropharynx normal Neck: Supple Respiratory: Airway patent, Breath sounds clear, Breath sounds equal, Respirations nonlabored Cardiovascular: RRR, Pulses normal, No rub, No murmur GI/: Soft, Nontender, No masses, Bowel sounds normal, No Organomegaly Musculoskeletal: Normal strength, ROM intact, No edema, No calf tenderness Skin: Warm, Dry, Normal color Neurological: Sensation intact, Motor intact, Reflexes intact, Cranial nerves intact, Alert, Oriented (oriented to person & place. Does not know day of week or date or season) Psychiatric: Affect appropriate, Mood appropriate Critical Care Note - Critical Care Note Total Time (mins): 0 Course - Course Hematology/Chemistry: 07/28/17 17:25 07/28/17 17:25 Orders, Labs, Meds: Lab Review 07/28/17 07/28/17 07/28/17 17:25 17:25 17:25 WBC 6.10 RBC 5.55 H Hgb 15.4 Hct 46.3 MCV 83.4 MCH 27.7 MCHC 33.3 RDW Coeff of [place] 14.2 Plt Count 366 Immature Gran % (Auto) 0.2 Neut % (Auto) 39.4 Lymph % (Auto) 49.8 [place] % (Auto) 7.4 Eos % (Auto) 2.5 Baso % (Auto) 0.7 Immature Gran # (Auto) 0.0 Neut # 2.4 Lymph # 3.0 [place] # 0.5 Eos # 0.2 Baso # 0.0 Sodium 136 Potassium 4.2 Chloride 101 Carbon Dioxide 25 Anion Gap 14.2 BUN 13 Creatinine 0.68 Estimated GFR (MDRD) 110.00 BUN/Creatinine Ratio 19.11 Glucose 170 H Calcium 10.5 H Total Bilirubin 1.05 AST 17 ALT 22 Alkaline Phosphatase 77 Total Creatine Kinase 45 Troponin I 0.0100 Total Protein 7.4 Albumin 3.7 Globulin 3.7 Albumin/Globulin Ratio 1.00 Urine Color Yellow Urine Clarity Cloudy Urine pH 6.0 Ur Specific [place] 1.010 Urine Protein Negative Urine Glucose (UA) Negative Urine Ketones Negative Urine Blood 1+ Urine Nitrite Negative Urine Bilirubin Negative Urine Urobilinogen 1.0 Ur Leukocyte Esterase Trace Urine Microscopic RBC 2-5 Urine Microscopic WBC 2-5 Ur Squamous Epith Cells 10-20 Amorphous Sediment 2+ Urine Bacteria 2+ Orders Category Date Time Status EKG-(ED ONLY) Stat CARDIO 07/28/17 17:17 Completed CBC W/ AUTO DIFF Stat LAB 07/28/17 17:25 Completed CK [CREATINE KINASE] Stat LAB 07/28/17 17:25 Completed COMPREHENSIVE METABOLIC PANEL Stat LAB 07/28/17 17:25 Completed TROPONIN I Stat LAB 07/28/17 17:25 Completed URINALYSIS C & S IF INDICATED Stat LAB 07/28/17 17:25 Completed URINE CULTURE Stat LAB 07/28/17 17:25 Received Vital Signs: Temp Pulse Resp BP Pulse Ox 07/28/17 16:37 98.4 F 84 18 168/90 H 97 Departure - Departure Time of Disposition: 18:14 Disposition: HOME SELF-CARE Discharge Problem: Viral labyrinthitis, Forgetfulness Instructions: Labyrinthitis (ED) Condition: Good Pt referred to PMD for follow-up: No (See doctor for follow up this week, sooner if symptoms worsen) Additional Instructions: continue the meclizine as directed for dizziness Allergies/Adverse Reactions: Allergies lisinopril Allergy (Severe, Verified 07/28/17 16:43) cough Patient to notify drugstore steroids Adverse Reaction (Uncoded 07/28/17 16:43) Nausea Home Medications: Ambulatory Orders Aspirin [Aspirin Chewable] 81 mg PO DAILY 03/16/13 Hydrocodone/Acetaminophen [[place] 5-325 Tablet] 1 each PO TID 01/30/16 Blood-Glucose Control, Normal [Onetouch Ultra Control Soln] 1 each MC TID #1 each 04/25/17 Lancets [Onetouch Lancets] 1 each MC TID #100 each 04/25/17 Insulin Glargine,Hum.rec.anlog [Lantus] 65 unit SUBCUT BEDTIME #1 ml 04/30/17 Disposition Discussed With: Patient, Family
[2017-07-28 17:32] LABS: BASOPHILS % (AUTO) 0.7 % (0.0-3.0); EOSINOPHILS # (AUTO) 0.2 K/ul (0.0-0.7); EOSINOPHILS % (AUTO) 2.5 % (0.0-7.0); HEMATOCRIT 46.3 % (37.0-47.0); HEMOGLOBIN 15.4 g/dl (12.0-16.0); IMMATURE GRANULOCYTE % (AUTO) 0.2 % (0.0-5.0); LYMPHOCYTES % (AUTO) 49.8 (10.0-50.0); MEAN CORPUSCULAR HEMOGLOBIN 27.7 pg (27.0-31.0); MEAN CORPUSCULAR HGB CONC 33.3 (31.8-35.4); MEAN CORPUSCULAR VOLUME 83.4 fl (81.0-99.0); MONOCYTES # (AUTO) 0.5 K/uL (0.4-2.0); MONOCYTES % (AUTO) 7.4 (0-10); NEUTROPHILS # (AUTO) 2.4 K/ul (2.0-6.9); NEUTROPHILS % (AUTO) 39.4; PLATELET COUNT 366 10^3/uL (140-440); RED BLOOD COUNT 5.55 10^6/ul (4.20-5.40)
[2017-07-28 17:36] LABS: BILIRUBIN,URINE Negative (NEGATIVE); KETONES,URINE Negative (NEGATIVE); LEUKOCYTE ESTERASE ,URINE Trace (NEGATIVE); NITRITE,URINE Negative (NEGATIVE); PROTEIN,URINE Negative (NEGATIVE); URINE, BLOOD 1+ (NEGATIVE)
[2017-07-28 17:38] LABS: ADD URINE MICROSCOPIC YES
[2017-07-28 17:39] LABS: BACTERIA,URINE 2+ (NOT PRESENT)
[2017-07-28 17:59] LABS: ALBUMIN 3.7 g/dL (3.4-5.0); ANION GAP 14.2; BILIRUBIN,TOTAL 1.05 mg/dL (0.00-1.20); BUN/CREATININE RATIO 19.11; CALCIUM 10.5 mg/dL (8.2-10.2); CREATININE 0.68 mg/dL (0.60-1.30); POTASSIUM 4.2 mmol/L (3.5-5.10); TOTAL PROTEIN 7.4 g/dL (6.4-8.2); TROPONIN I 0.01 ng/ml (0.0000-0.4000)
== END 2017-07-28 18:25 | disposition home or self-care (01) ==
LOC: ED 16:35
DX: R41.3 Other amnesia (principal); H83.09 Labyrinthitis, unspecified ear; I10 Essential (primary) hypertension; E11.9 Type 2 diabetes mellitus without complications; F17.210 Nicotine dependence, cigarettes, uncomplicated; R51 Headache; Z86.73 Personal history of transient ischemic attack (TIA), and cerebral infarction without residual deficits; Z79.01 Long term (current) use of anticoagulants; Z79.899 Other long term (current) drug therapy
CPT/HCPCS: 36415; 80053; 81001; 82550; 84484; 85025; 87086; 93005; 93010; 99283

== ENCOUNTER 2017-11-08 16:15 | Outpatient (CLI) ==
[2013-03-16 13:59] VITALS: TEMP 97.2
== END 2017-11-08 16:16 | disposition home or self-care (01) ==
LOC: LAB 16:15
PROVIDERS: ATTEND Emergency Medicine
DX: E11.9 Type 2 diabetes mellitus without complications (principal); E78.5 Hyperlipidemia, unspecified; I10 Essential (primary) hypertension
CPT/HCPCS: 36415; 80053; 80061; 83037; 84443; 85025